=== PATIENT | female | born 1945 | race Caucasian/White ===

== ENCOUNTER → 2016-02-17 | Outpatient (CLI) | payer MEDICARE, OTHER ==
[~2016-02-17] MED LIST: /CELE20CA PO; /ESOM40CA PO; /WARF25TA; ACET65TA PO; BABY81CH PO; CENTRUM SILVER PO; CEPH500C OR; COLA100C2; COLA100C2 PO; CYCL5TA PO; FERR325T; FISHCAP PO; GABA300T PO; GARLPOW PO; LISI20TA5; LISI20TA5 PO; MAGN250T PO; MORP15TA4 PO; MS C15TA5; OSTEO BIFLEX PO; PERC5TAB8; SIMV20TA2; VICO5TAB PO; VITAMIN D PO; [UNRECOGNIZED DRUG - CODE] PO; [UNRECOGNIZED DRUG - OTHER]; [UNRECOGNIZED DRUG - OTHER] PO; cinnamon PO; tps cream TOP; tumeric PO
--- NOTE | 2016-02-29 01:48 | ECWPNPC ---
PATIENT NAME: RICKI MUNGUIA : 1945 GENDER: FEMALE VISIT DATE: 02/17/2016 DISCHARGE DATE: 02/17/16 1509 VISIT LOCKED DATE TIME: PHYSICIAN: SHIMON RICHMODN RESOURCE: SHIMON RICHMOND REASON FOR APPOINTMENT 1. BACK HISTORY OF PRESENT ILLNESS HISTORY OF PRESENT ILLNESS: PAIN THE PATIENT DESCRIBES THE PAIN... THE PATIENT DESCRIBES THE PAIN... THE PATIENT DESCRIBES THE PAIN... HERE FOR F/U AND MEDICINE MANAGEMENT OF CHRONIC LBP AND BILAT. KNEE PAIN. RATING PAIN VAS 5/10. USING MS CONTIN 15MG BID AND CELEBREX 100MG BID .FINDS CURRENT MEDICINE EFFECTIVE AT REDUCING PAIN AND KEEPING HER COMFORTABLE.DENIES SIDE EFFECTS WITH MEDICATION.REPORTING 6MOS HX OF LEFT LBP THAT SEEMS TO BE MORE PERSISTENT PAST TWO MOS.REVIEWED MRI [id number] WHICH SHOWS SEVERE CENTRAL CANAL STENOSIS AT L3/4 AND L4/5.DISCUSSED TREATMENT OPTIONS. FALL RISK SCREENING: SCREENING :NO FALLS IN THE PAST YEAR CURRENT MEDICATIONS TAKING ASPIRIN 81 MG TABLET CHEWABLE 1 TABLET ORALLY ONCE A DAY TAKING CENTRUM SILVER TABLET ORALLY DAILY TAKING CEPHALEXIN 500 MG CAPSULE 1 CAPSULE ORALLY PRE DENTAL WORK; 4 CAPS TAKING COLACE 100 MG CAPSULE 1 CAP ORALLY BID TAKING NEXIUM 40 MG CAPSULE DELAYED RELEASE 1 CAPSULE ORALLY ONCE A DAY TAKING FISH OIL 1200 MG CAPSULE 2 CAPSULE ORALLY TWICE A DAY TAKING LISINOPRIL 20 MG TABLET 1 TABLET ORALLY ONCE A DAY TAKING MAGNESIUM 300 MG CAPSULE 1 CAPSULE WITH A MEAL ORALLY ONCE A DAY TAKING OSTEO BI-FLEX ADV JOINT SHIELD TABLET ORALLY BID TAKING GARLIC 300 MG TABLET ORALLY BID TAKING CINNAMON 1000 MG CAPSULE ORALLY DAILY TAKING TURMERIC 1 CAP(S) P.O. DAILY TAKING CYCLOBENZAPRINE HCL 5 MG TABLET 1 TABLET ORALLY AT BEDTIME NEEDED TAKING MORPHINE SULFATE 15 MG TABLET 1 ORALLY TWICE A DAYMDD2 3MOS CAT D CHRONIC PAIN TAKING CELEBREX 100 MG CAPSULE 1 CAPSULE ORALLY TWICE A DAY TAKING METFORMIN HCL 500 MG TABLET 1 TABLET WITH MEALS ORALLY DAILY DISCONTINUED NIACIN CR 500 MG 1 TAB(S) ORALLY AT BEDTIME DISCONTINUED METFORMIN 1 TAB ORAL MEDICATION LIST REVIEWED AND RECONCILED WITH THE PATIENT PAST MEDICAL HISTORY HTN DIABETES ALLERGIES CODEINE SULFATE: SENSITIVITY REPORTED BY PT: SIDE EFFECTS DARIFENACIN HYDROBROMIDE: LEG CRAMPS: SIDE EFFECTS SOCIAL HISTORY TOBACCO USE ARE YOU A:NONSMOKER LEARNING BARRIERS / SPECIAL NEEDS ORIENTED TO PLAN OF CARE: PATIENT, PAIN MANAGEMENT PATIENT, ORIENTED TO PLAN OF CARE: PATIENT, PAIN MANAGEMENT PATIENT. NEW PATIENT PAIN DIARY TODAY'S VISITNOTES FROM 0-10, WHAT LEVEL IS YOUR PAIN TODAY?0 PAIN CLINIC PFS, CLERGY, PUBLIC HEALTH REFERRALS PFS REFERRAL NEEDED?NO CLERGY REFERRAL NEEDED?NO PUBLIC HEALTH REFERRAL NEEDED?NO WAS THE PROVIDER NOTIFIED OF ANY PERTINENT INFO?NO PFS REFERRAL NEEDED?NO CLERGY REFERRAL NEEDED?NO PUBLIC HEALTH REFERRAL NEEDED?NO WAS THE PROVIDER NOTIFIED OF ANY PERTINENT INFO?NO REVIEW OF SYSTEMS CONSTITUTIONAL: ANY CHANGE IN YOUR MEDICAL CONDITION? NO . CHILLS NO . FEVER NO . INFECTION: DO YOU HAVE NEW INFECTIONS? NO . DO YOU HAVE HISTORY OF MRSA? NO . MUSCULOSKELETAL: ANY NEW PATTERNS OF PAIN OR NUMBNESS? NO . GASTROENTEROLOGY: ANY NEW CHANGE IN BOWEL CONTROL? NO . GENITOURINARY: ANY NEW CHANGE IN BLADDER CONTROL? NO . IS THERE A CHANCE YOU COULD BE ? NO . HEMATOLOGY/LYMPH: DO YOU TAKE ANY BLOOD THINNERS? (FOR EXAMPLE- COUMADIN, PLAVIX, AGGRENOX, PLATEL, PRADAXA, OR XARELTO) NO . WHEN WAS YOUR LAST DOSE? DATE: TIME: . NEUROLOGY: HAVE YOU FALLEN IN THE PAST 6 MONTHS? NO . ANY NEW EXTREMITY NUMBNESS OR WEAKNESS? NO . CARDIOLOGY: DO YOU HAVE A PACEMAKER OR DEFIBRILLATOR? NO . RESPIRATORY: HAVE YOU BEEN SICK IN THE PAST WEEK? NO . FEVER NO . FLU LIKE SYMPTOMS? NO . COUGH NO . INTEGUMENTARY: DO YOU HAVE ANY RASHES OR OPEN SORES? YES, CAT SCRATCHES . ALLERGIC/IMMUNO: ARE YOU ALLERGIC TO SHELLFISH OR IV DYE? NO . ANY NEW ALLERGIES? NO . PSYCHIATRIC: DO YOU HAVE THOUGHTS OF HURTING YOURSELF OR SOMEONE ELSE? NO . ARE YOU ABUSED, NEGLECTED, OR IN AN UNSAFE ENVIRONMENT? NO . ENDOCRINOLOGY: ARE YOU DIABETIC? YES . OTHER: DO YOU NEED ANY PRESCRIPTIONS? YES, MS CONTIN, CELEBREX . IF YES, PLEASE LIST: ____ . ANY NEW PROBLEMS WITH YOUR MEDICATIONS? NO . WHEN DID YOU LAST EAT? ____ . WHEN DID YOU LAST DRINK? ____ . WHAT DID YOU LAST DRINK? ____ . NAME OF PERSON DRIVING YOU HOME? ____ . DO YOU HAVE ANY OTHER QUESTIONS OR CONCERNS NO . REVIEWED BY: PROVIDER: SHIMON HUFF . VITAL SIGNS WT 188 LBS, HT 62 IN, BMI 34.38 INDEX, BP 139/75 MM HG, HR 65 /MIN, RR 16 /MIN, TEMP 96.3 F, OXYGEN SAT % 96%, NA INITIALS SC 14:05, REVIEWED BY: MLF. EXAMINATION GENERAL EXAMINATION: LUNGS:LUNG SOUNDS ARE CLEAR. HEART:HEART RATE REGULAR. MUSCULOSKELETAL:*, MUSCLE STRENGTH TESTING 5/5 BILATERAL, PALPATION: POSITIVE FOR PAIN OVER L/S SPINE. POSITIVE FOR PAIN OVER L/S PARASPINALS.LEFT GREATER THAN RIGHT.. DIAGNOSTIC DATA-MRI L/S SPINE REVIEWED. ASSESSMENTS CHRONIC BILATERAL LOW BACK PAIN WITHOUT SCIATICA - M54.5 (PRIMARY) CHRONIC PRESCRIPTION OPIATE USE - Z79.899 LUMBAR SPINAL STENOSIS - M48.06 TREATMENT CHRONIC BILATERAL LOW BACK PAIN WITHOUT SCIATICA LUMBAR FACET THERAPEUTICSHIMON RICHMOND 02/17/2016 2:49:51 PM > LEFT LUMBAR THERAPEUTIC BLOCK L3/4-L4/5 NOTES: ISTOP REGISTRY REVIEWED AND DEMNOSTRATES COMPLLIANCE. BRINGS IN MEDICATIONS WHICH IS APPROPRIATE FOR WHAT WAS DISPENSED. RECENT URINE TOXICOLOGY REVIEWED. NO UNAUTHORIZED MEDICATIONS. NO ILLICIT SUBSTANCES AND PRESCRIBED MEDICATIONS WERE PRESENT. , PATIENT WAS ADVISED TO START A WALKING PROGRAM TO STRENGTHEN LUMBAR PARASPINAL MUSCLES AND IMPROVE MOBILITY. THEY WERE ADVISED THAT THIS WILL IMPROVE WEIGHT LOSS AND ALSO DEPRESSION/FIBROMYALGIA SYMPTOMS. ADVISED TO WALK 10 MINUTES EVERY OTHER DAY ON A FLAT SURFACE. EMPHASIZED THE IMPORTANCE OF DOING THIS CONSISTANTLY AND NOT SPORATICALLY TO AVOID INJURY. STRONG ADVISED NOT TO DO MORE THAN 10 MINUTES EVERY OTHER DSY FOR THE FIRST 4 WEEKS., RISKS AND BENEFITS OF NARCOTIC/OPIOD MEDICATIONS WERE REVIEWED WITH PATIENT - THIS INCLUDES BUT IS NOT LIMITED TO RISK OF DEPENDANCE/DEVELOPMENT OF ADDICTION, MOOD DISTURBANCE AND DEPRESSION, OSTEOPOROSIS, HORMONAL AND LABIDAL CHANGES, RESPIRATORY DEPRESSION AND . PATIENT IS ADVISED NOT TO DRIVE WHILE ON THESE MEDICATIONS,FACET JOINT INJECTION MATERIAL WAS PRINTED,FACET JOINT INJECTION: YOUR EXPERIENCE MATERIAL WAS PRINTED. LUMBAR SPINAL STENOSIS LUMBAR FACET SHIMON CHEUNG 02/17/2016 2:49:51 PM > LEFT LUMBAR THERAPEUTIC BLOCK L3/4-L4/5 PROCEDURE CODES FA211 ESTABILISHED PATIENT [facility] FACILITY CHARGE G8730 PAIN ASSESS POS TOOL F/U PLAN DOC G8427 DOC MEDS VERIFIED W/PT OR RE FOLLOW UP 2WK POST PROC (REASON: LEFT L3/4-L4/5 LUMBAR THERAPEUTIC FACET BLOCK) ELECTRONICALLY SIGNED BY REFUGIO GOMEZ ON 02/26/2016 AT 05:08 PM EST DISCLAIMER : THIS IS A VISIT SUMMARY EXTRACTED FROM THE [employer] CHART. IT IS NOT A COPY OF THE [employer] PROGRESS NOTE. LAURA
== END ==
LOC: M PAIN 14:00
PROVIDERS: ATTEND Nurse Practitioner Family
DX: Z09 Encounter for follow-up examination after completed treatment for conditions other than malignant neoplasm (principal); G89.29 Other chronic pain; M54.5 Low back pain; M48.06 Spinal stenosis, lumbar region; I10 Essential (primary) hypertension; E11.9 Type 2 diabetes mellitus without complications; Z88.8 Allergy status to other drugs, medicaments and biological substances; Z79.82 Long term (current) use of aspirin; Z79.891 Long term (current) use of opiate analgesic; Z79.899 Other long term (current) drug therapy; Z79.84 Long term (current) use of oral hypoglycemic drugs

== ENCOUNTER → 2016-05-17 | Outpatient (CLI) | payer MEDICARE, OTHER ==
--- NOTE | 2016-05-21 01:31 | ECWPNPC ---
PATIENT NAME: RICKI MUNGUIA : 1945 GENDER: FEMALE VISIT DATE: 05/17/2016 DISCHARGE DATE: 05/17/16 1532 VISIT LOCKED DATE TIME: PHYSICIAN: SHIMON RICHMOND RESOURCE: SHIMON RICHMOND REASON FOR APPOINTMENT 1. FOLLOW UP-BACK HISTORY OF PRESENT ILLNESS HISTORY OF PRESENT ILLNESS: PAIN THE PATIENT DESCRIBES THE PAIN... THE PATIENT DESCRIBES THE PAIN... THE PATIENT DESCRIBES THE PAIN... THE PATIENT DESCRIBES THE PAIN... HERE FOR F/U AND MEDICINE MANAGEMENT OF CHRONIC LBP AND BILAT. KNEE PAIN. RATING PAIN VAS 5/10. USING MS CONTIN 15MG BID AND CELEBREX 100MG BID .FINDS CURRENT MEDICINE EFFECTIVE AT REDUCING PAIN AND KEEPING HER COMFORTABLE.DENIES SIDE EFFECTS WITH MEDICATION.REPORTING 6MOS HX OF LEFT LBP THAT SEEMS TO BE MORE PERSISTENT PAST TWO MOS..DISCUSSED TREATMENT OPTIONS.SOME INCREASE IN PAIN AFTER SITTING WITH RECENT LONG CAR RIDE. FALL RISK SCREENING: SCREENING :NO FALLS IN THE PAST YEAR CURRENT MEDICATIONS TAKING ASPIRIN 81 MG TABLET CHEWABLE 1 TABLET ORALLY ONCE A DAY TAKING CENTRUM SILVER TABLET ORALLY DAILY TAKING CEPHALEXIN 500 MG CAPSULE 1 CAPSULE ORALLY PRE DENTAL WORK; 4 CAPS TAKING COLACE 100 MG CAPSULE 1 CAP ORALLY BID TAKING NEXIUM 40 MG CAPSULE DELAYED RELEASE 1 CAPSULE ORALLY ONCE A DAY TAKING FISH OIL 1200 MG CAPSULE 2 CAPSULE ORALLY TWICE A DAY TAKING LISINOPRIL 20 MG TABLET 1 TABLET ORALLY ONCE A DAY TAKING MAGNESIUM 300 MG CAPSULE 1 CAPSULE WITH A MEAL ORALLY ONCE A DAY TAKING OSTEO BI-FLEX ADV JOINT SHIELD TABLET ORALLY BID TAKING GARLIC 300 MG TABLET ORALLY BID TAKING CINNAMON 1000 MG CAPSULE ORALLY DAILY TAKING TURMERIC 1 CAP(S) P.O. DAILY TAKING CYCLOBENZAPRINE HCL 5 MG TABLET 1 TABLET ORALLY AT BEDTIME NEEDED TAKING METFORMIN HCL 500 MG TABLET 1 TABLET WITH MEALS ORALLY DAILY TAKING CELEBREX 100 MG CAPSULE 1 CAPSULE ORALLY TWICE A DAY TAKING MORPHINE SULFATE 15 MG TABLET 1 ORALLY TWICE A DAYMDD2 3MOS CAT D CHRONIC PAIN TAKING GINKOBA 40 MG TABLET ORALLY BID PAST MEDICAL HISTORY HTN DIABETES ALLERGIES CODEINE SULFATE: SENSITIVITY REPORTED BY PT: SIDE EFFECTS DARIFENACIN HYDROBROMIDE: LEG CRAMPS: SIDE EFFECTS SOCIAL HISTORY GENERAL: PAIN CLINIC PFS, CLERGY, PUBLIC HEALTH REFERRALS CLERGY REFERRAL NEEDED?NO WAS THE PROVIDER NOTIFIED OF ANY PERTINENT INFO?NO PFS REFERRAL NEEDED?NO PUBLIC HEALTH REFERRAL NEEDED?NO PATIENT: ____. REVIEW OF SYSTEMS CONSTITUTIONAL: ANY CHANGE IN YOUR MEDICAL CONDITION? NO . CHILLS NO . FEVER NO . INFECTION: DO YOU HAVE NEW INFECTIONS? NO . DO YOU HAVE HISTORY OF MRSA? NO . MUSCULOSKELETAL: ANY NEW PATTERNS OF PAIN OR NUMBNESS? NO . GASTROENTEROLOGY: ANY NEW CHANGE IN BOWEL CONTROL? NO . GENITOURINARY: ANY NEW CHANGE IN BLADDER CONTROL? NO . IS THERE A CHANCE YOU COULD BE ? NO . HEMATOLOGY/LYMPH: DO YOU TAKE ANY BLOOD THINNERS? (FOR EXAMPLE- COUMADIN, PLAVIX, AGGRENOX, PLATEL, PRADAXA, OR XARELTO) NO . WHEN WAS YOUR LAST DOSE? DATE: TIME: . NEUROLOGY: HAVE YOU FALLEN IN THE PAST 6 MONTHS? NO . ANY NEW EXTREMITY NUMBNESS OR WEAKNESS? NO . CARDIOLOGY: DO YOU HAVE A PACEMAKER OR DEFIBRILLATOR? NO . RESPIRATORY: HAVE YOU BEEN SICK IN THE PAST WEEK? NO . FEVER NO . FLU LIKE SYMPTOMS? NO . COUGH NO . INTEGUMENTARY: DO YOU HAVE ANY RASHES OR OPEN SORES? NO . ALLERGIC/IMMUNO: ARE YOU ALLERGIC TO SHELLFISH OR IV DYE? NO . ANY NEW ALLERGIES? NO . PSYCHIATRIC: DO YOU HAVE THOUGHTS OF HURTING YOURSELF OR SOMEONE ELSE? NO . ARE YOU ABUSED, NEGLECTED, OR IN AN UNSAFE ENVIRONMENT? NO . ENDOCRINOLOGY: ARE YOU DIABETIC? YES . OTHER: DO YOU NEED ANY PRESCRIPTIONS? YES . IF YES, PLEASE LIST: ____MS CONTIN,CELEBREX . ANY NEW PROBLEMS WITH YOUR MEDICATIONS? NO . WHEN DID YOU LAST EAT? ____ . WHEN DID YOU LAST DRINK? ____ . WHAT DID YOU LAST DRINK? ____ . NAME OF PERSON DRIVING YOU HOME? ____ . DO YOU HAVE ANY OTHER QUESTIONS OR CONCERNS NO . REVIEWED BY: PROVIDER: SHIMON HUFF . VITAL SIGNS WT 188.6 LBS, HT 62 IN, BMI 34.49 INDEX, BP 126/67 MM HG, HR 73 /MIN, RR 16 /MIN, TEMP 98.7 F, OXYGEN SAT % 92%, NA INITIALS TL 1434. EXAMINATION GENERAL EXAMINATION: LUNGS:LUNG SOUNDS ARE CLEAR. HEART:HEART RATE REGULAR. MUSCULOSKELETAL:*, MUSCLE STRENGTH TESTING 5/5 BILATERAL, PALPATION: POSITIVE FOR PAIN OVER L/S SPINE. POSITIVE FOR PAIN OVER L/S PARASPINALS.LEFT GREATER THAN RIGHT.. DIAGNOSTIC DATA-MRI L/S SPINE REVIEWED. ASSESSMENTS CHRONIC BILATERAL LOW BACK PAIN WITHOUT SCIATICA - M54.5 (PRIMARY) CHRONIC PRESCRIPTION OPIATE USE - Z79.899 LUMBAR SPINAL STENOSIS - M48.06 TREATMENT CHRONIC BILATERAL LOW BACK PAIN WITHOUT SCIATICA REFILL CELEBREX CAPSULE, 100 MG, 1 CAPSULE, ORALLY, TWICE A DAY, 90 DAY(S), 180 CAPSULE, REFILLS 0 REFILL MORPHINE SULFATE TABLET, 15 MG, 1, ORALLY, TWICE A DAYMDD2 3MOS CAT D CHRONIC PAIN, 90 DAY(S), 180, REFILLS 0 LUMBAR FACET SHIMON CHEUNG 05/17/2016 3:09:03 PM > BILAT. L4/5-L5/S1 THERAPEUTIC FACET BLOCK NOTES: ISTOP REGISTRY REVIEWED AND DEMNOSTRATES COMPLLIANCE. BRINGS IN MEDICATIONS WHICH IS APPROPRIATE FOR WHAT WAS DISPENSED. RECENT URINE TOXICOLOGY REVIEWED. NO UNAUTHORIZED MEDICATIONS. NO ILLICIT SUBSTANCES AND PRESCRIBED MEDICATIONS WERE PRESENT. , RISKS AND BENEFITS OF NARCOTIC/OPIOD MEDICATIONS WERE REVIEWED WITH PATIENT - THIS INCLUDES BUT IS NOT LIMITED TO RISK OF DEPENDANCE/DEVELOPMENT OF ADDICTION, MOOD DISTURBANCE AND DEPRESSION, OSTEOPOROSIS, HORMONAL AND LABIDAL CHANGES, RESPIRATORY DEPRESSION AND . PATIENT IS ADVISED NOT TO DRIVE WHILE ON THESE MEDICATIONS,FACET JOINT INJECTION: YOUR EXPERIENCE MATERIAL WAS PRINTED. PROCEDURE CODES FA211 ESTABILISHED PATIENT [facility] FACILITY CHARGE G8730 PAIN ASSESS POS TOOL F/U PLAN DOC G8427 DOC MEDS VERIFIED W/PT OR RE DISPOSITION & COMMUNICATION FOLLOW UP 2WK POST PROC. (REASON: BILAT.L4/5-L5/S1 THERAPEUTIC FACET) ELECTRONICALLY SIGNED BY REFUGIO GOMEZ ON 05/18/2016 AT 02:19 PM EDT DISCLAIMER : THIS IS A VISIT SUMMARY EXTRACTED FROM THE [employer] CHART. IT IS NOT A COPY OF THE [employer] PROGRESS NOTE. MTDD
== END ==
LOC: M PAIN 14:00
PROVIDERS: ATTEND Nurse Practitioner Family
DX: Z09 Encounter for follow-up examination after completed treatment for conditions other than malignant neoplasm (principal); G89.29 Other chronic pain; M54.5 Low back pain; M48.06 Spinal stenosis, lumbar region; I10 Essential (primary) hypertension; E11.9 Type 2 diabetes mellitus without complications; Z88.5 Allergy status to narcotic agent; Z88.8 Allergy status to other drugs, medicaments and biological substances; Z79.82 Long term (current) use of aspirin; Z79.84 Long term (current) use of oral hypoglycemic drugs; Z79.891 Long term (current) use of opiate analgesic; Z79.899 Other long term (current) drug therapy

== ENCOUNTER → 2016-06-01 | Outpatient (CLI) | payer MEDICARE, OTHER ==
[~2016-06-01] MED LIST changes: +BUPIVACAINE HCL 0.25% 30 ML VIAL As Ordered ONE; +ISOVUE-M 300 61% 15ML VIAL (Q9967) As Ordered ONE; +LIDOCAINE 1% SDV INJ 30 ML VIAL As Ordered ONE; +TRIAMCINOLONE ACETONIDE SUSP 40 MG/ML VIAL (J3301) As Ordered ONE; +diazePAM 5 MG TAB As Ordered ONE; +oxyCODONE 5MG TAB As Ordered ONE
--- NOTE | 2016-06-01 13:45 | REP ---
Partial lumbar spine series: Two views. History: Injection procedure for pain. 19 seconds of fluoroscopy time is reported. Findings: A sequence of two fluoroscopically obtained intraprocedural spot radiographs of the lumbar spine document needle positions and contrast injections associated with the lumbar facet injection procedure. Signed by Doroteo Mccauley MD 06/01/2016 03:40 P
--- NOTE | 2016-06-06 23:44 | ECWPNPC ---
PATIENT NAME: RICKI MUNGUIA : 1945 GENDER: FEMALE VISIT DATE: 06/01/2016 DISCHARGE DATE: 06/01/16 1355 VISIT LOCKED DATE TIME: PHYSICIAN: IRMA KEVIN RESOURCE: IRMA KEVIN REASON FOR APPOINTMENT 1. THER LUMBAR FACET HISTORY OF PRESENT ILLNESS HISTORY OF PRESENT ILLNESS: PAIN THE PATIENT DESCRIBES THE PAIN... FALL RISK SCREENING: SCREENING :NO FALLS IN THE PAST YEAR CURRENT MEDICATIONS TAKING ASPIRIN 81 MG TABLET CHEWABLE 1 TABLET ORALLY ONCE A DAY, NOTES: [id number] TAKING CENTRUM SILVER TABLET ORALLY DAILY, NOTES: 06-01-16799 TAKING CEPHALEXIN 500 MG CAPSULE 1 CAPSULE ORALLY PRE DENTAL WORK; 4 CAPS, NOTES: NONE TAKING COLACE 100 MG CAPSULE 1 CAP ORALLY BID, NOTES: 06-01-16799 TAKING NEXIUM 40 MG CAPSULE DELAYED RELEASE 1 CAPSULE ORALLY ONCE A DAY, NOTES: [id number] TAKING FISH OIL 1200 MG CAPSULE 2 CAPSULE ORALLY TWICE A DAY, NOTES: [id number] TAKING LISINOPRIL 20 MG TABLET 1 TABLET ORALLY ONCE A DAY, NOTES: [id number] TAKING MAGNESIUM 300 MG CAPSULE 1 CAPSULE WITH A MEAL ORALLY ONCE A DAY, NOTES: [id number] TAKING OSTEO BI-FLEX ADV JOINT SHIELD TABLET ORALLY BID, NOTES: 06-01-16799 TAKING GARLIC 300 MG TABLET ORALLY BID, NOTES: 06-01-16799 TAKING CINNAMON 1000 MG CAPSULE ORALLY DAILY, NOTES: 06-01-16799 TAKING TURMERIC 1 CAP(S) P.O. DAILY, NOTES: [id number] TAKING CYCLOBENZAPRINE HCL 5 MG TABLET 1 TABLET ORALLY AT BEDTIME NEEDED, NOTES: NONE TAKING METFORMIN HCL 500 MG TABLET 1 TABLET WITH MEALS ORALLY DAILY, NOTES: 05-31-16999 TAKING GINKOBA 40 MG TABLET ORALLY BID, NOTES: [id number] TAKING CELEBREX 100 MG CAPSULE 1 CAPSULE ORALLY TWICE A DAY, NOTES: 06-01-16799 TAKING MORPHINE SULFATE 15 MG TABLET 1 ORALLY TWICE A DAYMDD2 3MOS CAT D CHRONIC PAIN, NOTES: 06-01-16799 MEDICATION LIST REVIEWED AND RECONCILED WITH THE PATIENT PAST MEDICAL HISTORY HTN DIABETES ALLERGIES CODEINE SULFATE: SENSITIVITY REPORTED BY PT: SIDE EFFECTS DARIFENACIN HYDROBROMIDE: LEG CRAMPS: SIDE EFFECTS SOCIAL HISTORY GENERAL: PAIN CLINIC PFS, CLERGY, PUBLIC HEALTH REFERRALS CLERGY REFERRAL NEEDED?NO WAS THE PROVIDER NOTIFIED OF ANY PERTINENT INFO?NO PFS REFERRAL NEEDED?NO PUBLIC HEALTH REFERRAL NEEDED?NO PATIENT: ____. REVIEW OF SYSTEMS CONSTITUTIONAL: ANY CHANGE IN YOUR MEDICAL CONDITION? NO . CHILLS NO . FEVER NO . INFECTION: DO YOU HAVE NEW INFECTIONS? NO . DO YOU HAVE HISTORY OF MRSA? NO . MUSCULOSKELETAL: ANY NEW PATTERNS OF PAIN OR NUMBNESS? NO . GASTROENTEROLOGY: ANY NEW CHANGE IN BOWEL CONTROL? NO . GENITOURINARY: ANY NEW CHANGE IN BLADDER CONTROL? NO . IS THERE A CHANCE YOU COULD BE ? NO . HEMATOLOGY/LYMPH: DO YOU TAKE ANY BLOOD THINNERS? (FOR EXAMPLE- COUMADIN, PLAVIX, AGGRENOX, PLATEL, PRADAXA, OR XARELTO) NO . WHEN WAS YOUR LAST DOSE? DATE: TIME: . NEUROLOGY: HAVE YOU FALLEN IN THE PAST 6 MONTHS? NO . ANY NEW EXTREMITY NUMBNESS OR WEAKNESS? NO . CARDIOLOGY: DO YOU HAVE A PACEMAKER OR DEFIBRILLATOR? NO . RESPIRATORY: HAVE YOU BEEN SICK IN THE PAST WEEK? NO . FEVER NO . FLU LIKE SYMPTOMS? NO . COUGH NO . INTEGUMENTARY: DO YOU HAVE ANY RASHES OR OPEN SORES? NO . ALLERGIC/IMMUNO: ARE YOU ALLERGIC TO SHELLFISH OR IV DYE? NO . ANY NEW ALLERGIES? NO . PSYCHIATRIC: DO YOU HAVE THOUGHTS OF HURTING YOURSELF OR SOMEONE ELSE? NO . ARE YOU ABUSED, NEGLECTED, OR IN AN UNSAFE ENVIRONMENT? NO . ENDOCRINOLOGY: ARE YOU DIABETIC? YES . OTHER: DO YOU NEED ANY PRESCRIPTIONS? NO . IF YES, PLEASE LIST: ____ . ANY NEW PROBLEMS WITH YOUR MEDICATIONS? NO . WHEN DID YOU LAST EAT? [id number] . WHEN DID YOU LAST DRINK? 06-01-16 0800 . WHAT DID YOU LAST DRINK? WATER . NAME OF PERSON DRIVING YOU HOME? TERESITA RIDLING . DO YOU HAVE ANY OTHER QUESTIONS OR CONCERNS NO . REVIEWED BY: PROVIDER: . VITAL SIGNS WT 187.6 LBS, HT 62 IN, BMI 34.31 INDEX, BP 154/75 MM HG, HR 72 /MIN, RR 16 /MIN, TEMP 98.3 F, OXYGEN SAT % 95%, NA INITIALS SC 11:15, REVIEWED BY: CM. ASSESSMENTS SPONDYLOSIS WITHOUT MYELOPATHY OR RADICULOPATHY, LUMBAR REGION - M47.816 (PRIMARY) SPONDYLOSIS WITHOUT MYELOPATHY OR RADICULOPATHY, LUMBOSACRAL REGION - M47.817 PROCEDURES PN LUMBAR FACET BLOCK THERAPEUTIC PRE PROCEDURE DIAGNOSIS LUMBAR SPONDYLOSIS, LUMBOSACRAL SPONDYLOSIS POST PROCEDURE DIAGNOSIS LUMBAR SPONDYLOSIS, LUMBOSACRAL SPONDYLOSIS PROCEDURE BILATERAL L4-L5 AND BILATERAL L5-S1 LUMBAR FACET THERAPEUTIC BLOCK SURGEON DR. IRMA KEVIN HOSPICE EXECUTIVE DIRECTOR NONE ANESTHESIA LOCAL PRE PROCEDURE NOTE THE PATIENT HAS A HISTORY OF CHRONIC LOW BACK PAIN. I EVALUATE THE PATIENT AND REVIEWED THE CHART. I WENT OVER THE RISKS, ALTERNATIVES, AND BENEFITS ASSOCIATED WITH THIS PROCEDURE. THE PATIENT WOULD LIKE TO PROCEED AND GIVE CONSENT TO PERFORMED THE PROCEDURE. THE PATIENT DENIES UNEXPLAINABLE WEIGHT LOSS, FEVER, CHILLS, OR NEW CHANGES IN URINARY OR BOWEL CONTROL DESCRIPTION OF PROCEDURE THE PATIENT WAS BROUGHT TO THE PROCEDURE ROOM AND PLACED IN THE PRONE POSITION. THE LUMBOSACRAL AREA WAS CLEANED WITH CHLORAPREP SOLUTION AND DRAPED ASEPTICALLY. THE PROCEDURE WAS DONE UNDER STERILE CONDITIONS. I CHECKED LATERALITY AND THE LEVEL WHERE THE PROCEDURE WAS GOING TO BE PERFORMED WITH THE PATIENT AND THE SUPPORTING STAFF AT THE MOMENT OF THE TIME OUT IN THE PROCEDURE ROOM. UNDER FLUOROSCOPIC GUIDANCE, THE TARGET POINT WAS SELECTED AT THE RIGHT AND LEFT L4-L5 AND RIGHT AND LEFT L5-S1 FACET JOINT. TARGET POINT WAS SELECTED AFTER LATERAL ROTATION AND TILT OF THE MAGNIFIER OF THE C-ARM. LIDOCAINE 0.5% WAS USED TO NUMB THE SKIN AND THE SUBCUTANEOUS TISSUE BELOW IT. SPINAL NEEDLES, 22-GAUGE, WERE ADVANCED UNDER FLUOROSCOPIC GUIDANCE AND FOLLOWING PATIENT FEEDBACK UNTIL THE TARGETS WERE TOUCHED. THE POSITION OF THE NEEDLES WAS VERIFIED WITH AP AND LATERAL VIEWS. AFTER PROPER POSITION OF THE NEEDLES WAS ACHIEVED, ISOVUE-M DYE 30% 0.1 ML WAS INJECTED SHOWING ADEQUATE SPREAD OF THE DYE. THEN A SOLUTION OF 1.9 ML OF BUPIVACAINE 0.125% OF KENALOG 10 MG WAS INJECTED AT EACH SITE. THERE WAS NO EVIDENCE OF BLOOD, PARESTHESIA OR CEREBROSPINAL FLUID DURING THE PROCEDURE. THE PATIENT WAS SENT TO THE RECOVERY ROOM. THE PATIENT WAS MOVING THE EXTREMITIES AND DOING WELL. THERE WAS NO COMPLICATION DURING THE PROCEDURE. FLUOROSCOPY TIME WAS 19 SECONDS POST PROCEDURE NOTE THE PATIENT WILL BE SEEN IN A FOLLOW UP IN THE NEXT FEW WEEKS. INSTRUCTIONS WERE GIVEN, QUESTIONS WERE ANSWERED, AND THE PATIENT EXPRESSED UNDERSTANDING AND AGREES WITH THE PLAN. I, VALERIA POST, DOCUMENTED THE ABOVE INFORMATION ACTING A SCRIBE FOR DR. KEVIN. I, DR. KEVIN, HAVE REVIEWED THE ABOVE DOCUMENT, SCRIBED BY VALERIA POST, AND I VERIFY THAT IT IS ACCURATE DIAGNOSTIC IMAGING [facility] FACET BLOCK (PAIN)[id number] PROCEDURE CODES 56072 INJ PARAVERT F JNT L/S 1 LEV 12203 INJ PARAVERT F JNT L/S 2 LEV 6045F RADXPS IN END [id number] PXD DISPOSITION & COMMUNICATION FOLLOW UP 3 WEEKS ELECTRONICALLY SIGNED BY IRMA KEVIN MD ON 06/06/2016 AT 04:54 PM EDT DISCLAIMER : THIS IS A VISIT SUMMARY EXTRACTED FROM THE [employer] CHART. IT IS NOT A COPY OF THE [employer] PROGRESS NOTE. MTDD
== END ==
LOC: M PAIN 11:00
PROVIDERS: ATTEND Anesthesiology
DX: G89.29 Other chronic pain (principal); M47.816 Spondylosis without myelopathy or radiculopathy, lumbar region; M47.817 Spondylosis without myelopathy or radiculopathy, lumbosacral region; I10 Essential (primary) hypertension; E11.9 Type 2 diabetes mellitus without complications; Z88.5 Allergy status to narcotic agent; Z88.8 Allergy status to other drugs, medicaments and biological substances; Z79.82 Long term (current) use of aspirin; Z79.84 Long term (current) use of oral hypoglycemic drugs; Z79.891 Long term (current) use of opiate analgesic; Z79.899 Other long term (current) drug therapy
CPT/HCPCS: 64493; 64494; J3301; Q9967

== ENCOUNTER → 2016-06-15 | Outpatient (CLI) | payer MEDICARE, OTHER ==
[~2016-06-15] MED LIST changes: -BUPIVACAINE HCL 0.25% 30 ML VIAL As Ordered ONE; -ISOVUE-M 300 61% 15ML VIAL (Q9967) As Ordered ONE; -LIDOCAINE 1% SDV INJ 30 ML VIAL As Ordered ONE; -TRIAMCINOLONE ACETONIDE SUSP 40 MG/ML VIAL (J3301) As Ordered ONE; -diazePAM 5 MG TAB As Ordered ONE; -oxyCODONE 5MG TAB As Ordered ONE
--- NOTE | 2016-06-26 00:12 | ECWPNPC ---
PATIENT NAME: RICKI MUNGUIA : 1945 GENDER: FEMALE VISIT DATE: 06/15/2016 DISCHARGE DATE: 06/15/16 1504 VISIT LOCKED DATE TIME: PHYSICIAN: SHIMON RICHMOND RESOURCE: SHIMON RICHMOND REASON FOR APPOINTMENT 1. POST PROCEDURE HISTORY OF PRESENT ILLNESS HISTORY OF PRESENT ILLNESS: HERE FOR POST PROCEDURE F/U.HAD BILAT. L4/5-L5/S1 LUMBAR THERAPEUTIC FACET BLOCK ON 06-01-16.REPORTS 100 % IMPROVEMENT IN PAIN SINCE PROCEDURE THAT CONTINUES TODAY.RATING PAIN VAS 0/10.DISCUSSED MEDICATION.WE TALKED SLOWLY REDUCING AND DISCONTINUING MORPHINE ER 15MG BID. PAIN THE PATIENT DESCRIBES THE PAIN... FALL RISK SCREENING: SCREENING :NO FALLS IN THE PAST YEAR CURRENT MEDICATIONS TAKING ASPIRIN 81 MG TABLET CHEWABLE 1 TABLET ORALLY ONCE A DAY TAKING CENTRUM SILVER TABLET ORALLY DAILY TAKING CEPHALEXIN 500 MG CAPSULE 1 CAPSULE ORALLY PRE DENTAL WORK; 4 CAPS, NOTES: NONE TAKING COLACE 100 MG CAPSULE 1 CAP ORALLY BID TAKING NEXIUM 40 MG CAPSULE DELAYED RELEASE 1 CAPSULE ORALLY ONCE A DAY TAKING FISH OIL 1200 MG CAPSULE 2 CAPSULE ORALLY TWICE A DAY TAKING LISINOPRIL 20 MG TABLET 1 TABLET ORALLY ONCE A DAY TAKING MAGNESIUM 300 MG CAPSULE 1 CAPSULE WITH A MEAL ORALLY ONCE A DAY TAKING OSTEO BI-FLEX ADV JOINT SHIELD TABLET ORALLY BID TAKING GARLIC 300 MG TABLET ORALLY BID TAKING CINNAMON 1000 MG CAPSULE ORALLY DAILY TAKING TURMERIC 1 CAP(S) P.O. DAILY TAKING CYCLOBENZAPRINE HCL 5 MG TABLET 1 TABLET ORALLY AT BEDTIME NEEDED TAKING METFORMIN HCL 500 MG TABLET 1 TABLET WITH MEALS ORALLY DAILY TAKING GINKOBA 40 MG TABLET ORALLY BID TAKING CELEBREX 100 MG CAPSULE 1 CAPSULE ORALLY TWICE A DAY TAKING MORPHINE SULFATE 15 MG TABLET 1 ORALLY TWICE A DAYMDD2 3MOS CAT D CHRONIC PAIN MEDICATION LIST REVIEWED AND RECONCILED WITH THE PATIENT PAST MEDICAL HISTORY HTN DIABETES ALLERGIES CODEINE SULFATE: SENSITIVITY REPORTED BY PT: SIDE EFFECTS DARIFENACIN HYDROBROMIDE: LEG CRAMPS: SIDE EFFECTS REVIEW OF SYSTEMS CONSTITUTIONAL: ANY CHANGE IN YOUR MEDICAL CONDITION? NO . CHILLS NO . FEVER NO . INFECTION: DO YOU HAVE NEW INFECTIONS? NO . DO YOU HAVE HISTORY OF MRSA? NO . MUSCULOSKELETAL: ANY NEW PATTERNS OF PAIN OR NUMBNESS? NO . GASTROENTEROLOGY: ANY NEW CHANGE IN BOWEL CONTROL? NO . GENITOURINARY: ANY NEW CHANGE IN BLADDER CONTROL? NO . IS THERE A CHANCE YOU COULD BE ? NO . HEMATOLOGY/LYMPH: DO YOU TAKE ANY BLOOD THINNERS? (FOR EXAMPLE- COUMADIN, PLAVIX, AGGRENOX, PLATEL, PRADAXA, OR XARELTO) NO . WHEN WAS YOUR LAST DOSE? DATE: TIME: . NEUROLOGY: HAVE YOU FALLEN IN THE PAST 6 MONTHS? NO . ANY NEW EXTREMITY NUMBNESS OR WEAKNESS? NO . CARDIOLOGY: DO YOU HAVE A PACEMAKER OR DEFIBRILLATOR? NO . RESPIRATORY: HAVE YOU BEEN SICK IN THE PAST WEEK? NO . FEVER NO . FLU LIKE SYMPTOMS? NO . COUGH NO . INTEGUMENTARY: DO YOU HAVE ANY RASHES OR OPEN SORES? NO . ALLERGIC/IMMUNO: ARE YOU ALLERGIC TO SHELLFISH OR IV DYE? NO . ANY NEW ALLERGIES? NO . PSYCHIATRIC: DO YOU HAVE THOUGHTS OF HURTING YOURSELF OR SOMEONE ELSE? NO . ARE YOU ABUSED, NEGLECTED, OR IN AN UNSAFE ENVIRONMENT? NO . ENDOCRINOLOGY: ARE YOU DIABETIC? YES . OTHER: DO YOU NEED ANY PRESCRIPTIONS? NO . IF YES, PLEASE LIST: ____ . ANY NEW PROBLEMS WITH YOUR MEDICATIONS? NO . WHEN DID YOU LAST EAT? ____ . WHEN DID YOU LAST DRINK? ____ . WHAT DID YOU LAST DRINK? ____ . NAME OF PERSON DRIVING YOU HOME? ____ . DO YOU HAVE ANY OTHER QUESTIONS OR CONCERNS NO . REVIEWED BY: PROVIDER: SHIMON HUFF . VITAL SIGNS WT 186.2 LBS, HT 62 IN, BMI 34.05 INDEX, BP 136/66 MM HG, HR 78 /MIN, RR 18 /MIN, TEMP 98.5 F, OXYGEN SAT % 96%, NA INITIALS TL 1440, REVIEWED BY: MIGUEL A. EXAMINATION GENERAL EXAMINATION: GENERAL APPEARANCE:LOOKS WELL. PSYCHAFFECT NORMAL. LUNGS:LUNG PEREZ ARE CLEAR TO AUSCULTATION BILATERALLY. GOOD MOVEMENT OF AIR. HEART:S1, S2 IN A REGULAR RATE AND RHYTHM. NO SIGNIFICANT MURMURS, RUBS OR GALLOPS NOTED. LUMBAR SPINE/LOWER BACK: PALPATION:NO VERTEBRAL SPINE TENDERNESS, NO PARASPINAL TENDERNESS. MOTOR SYSTEM:5/5 BLE. SENSORY EXAM:NORMAL BILATERAL LE. ASSESSMENTS CHRONIC BILATERAL LOW BACK PAIN WITHOUT SCIATICA - M54.5 (PRIMARY) CHRONIC PRESCRIPTION OPIATE USE - Z79.899 LUMBAR SPINAL STENOSIS - M48.06 TREATMENT CHRONIC BILATERAL LOW BACK PAIN WITHOUT SCIATICA NOTES: SLOWLYREDUCE AND DISCONTINUE MS CONTIN 15MG. PROCEDURE CODES FA211 ESTABILISHED PATIENT [facility] FACILITY CHARGE G8730 PAIN ASSESS POS TOOL F/U PLAN DOC G8427 DOC MEDS VERIFIED W/PT OR RE DISPOSITION & COMMUNICATION FOLLOW UP 2 MONTHS ELECTRONICALLY SIGNED BY REFUGIO GOMEZ ON 06/25/2016 AT 05:38 PM EDT DISCLAIMER : THIS IS A VISIT SUMMARY EXTRACTED FROM THE [employer] CHART. IT IS NOT A COPY OF THE [employer] PROGRESS NOTE. LAURA
== END ==
LOC: M PAIN 14:20
PROVIDERS: ATTEND Nurse Practitioner Family
DX: G89.29 Other chronic pain (principal); M54.5 Low back pain; M48.06 Spinal stenosis, lumbar region; I10 Essential (primary) hypertension; E11.9 Type 2 diabetes mellitus without complications; Z88.5 Allergy status to narcotic agent; Z88.8 Allergy status to other drugs, medicaments and biological substances; Z79.82 Long term (current) use of aspirin; Z79.84 Long term (current) use of oral hypoglycemic drugs; Z79.891 Long term (current) use of opiate analgesic; Z79.899 Other long term (current) drug therapy

== ENCOUNTER → 2016-08-18 | Outpatient (CLI) | payer MEDICARE, OTHER ==
--- NOTE | 2016-08-31 01:44 | ECWPNPC ---
PATIENT NAME: RICKI MUNGUIA : 1945 GENDER: FEMALE VISIT DATE: 08/18/2016 DISCHARGE DATE: 08/18/16 1451 VISIT LOCKED DATE TIME: PHYSICIAN: SHIMON RICHMOND RESOURCE: SHIMON RICHMOND REASON FOR APPOINTMENT 1. MED HISTORY OF PRESENT ILLNESS HISTORY OF PRESENT ILLNESS: HERE FOR ROUTINE F/U AND MANAGEMENT OF CHRONIC LOW BACK AND KNEE PAIN.COMPLAINING OF 2 MONTH HISTORY OF LEFT LOW BACK PAIN.HAS STRONG FAMILY HISTORY OF KIDNEY PROBLEMS AND SHE WILL BE HAVING PRIMARY CARE EVALUATE.RATING PAIN 5/10 VAS.THIS IS CONSTANT AND SORE.IT IS NOT AGGREVATED BY WALKING.CURRENT MEDICATION FOR CHRONIC LBP:MS CONTIN 15MG QD,FLEXERIL 5MG AT HS AND CELEBREX 100MG BID. FALL RISK SCREENING: SCREENING :NO FALLS IN THE PAST YEAR CURRENT MEDICATIONS TAKING ASPIRIN 81 MG TABLET CHEWABLE 1 TABLET ORALLY ONCE A DAY TAKING CENTRUM SILVER TABLET ORALLY DAILY TAKING CEPHALEXIN 500 MG CAPSULE 1 CAPSULE ORALLY PRE DENTAL WORK; 4 CAPS, NOTES: NONE TAKING COLACE 100 MG CAPSULE 1 CAP ORALLY ONCE DAILY TAKING NEXIUM 40 MG CAPSULE DELAYED RELEASE 1 CAPSULE ORALLY ONCE A DAY TAKING FISH OIL 1200 MG CAPSULE 2 CAPSULE ORALLY TWICE A DAY TAKING LISINOPRIL 20 MG TABLET 1 TABLET ORALLY ONCE A DAY TAKING MAGNESIUM 300 MG CAPSULE 1 CAPSULE WITH A MEAL ORALLY ONCE A DAY TAKING OSTEO BI-FLEX ADV JOINT SHIELD TABLET ORALLY BID TAKING GARLIC 300 MG TABLET ORALLY BID TAKING CINNAMON 1000 MG CAPSULE ORALLY DAILY TAKING TURMERIC 1 CAP(S) P.O. DAILY TAKING CYCLOBENZAPRINE HCL 5 MG TABLET 1 TABLET ORALLY AT BEDTIME NEEDED TAKING METFORMIN HCL 500 MG TABLET 1 TABLET WITH MEALS ORALLY DAILY TAKING GINKOBA 40 MG TABLET ORALLY BID TAKING CELEBREX 100 MG CAPSULE 1 CAPSULE ORALLY TWICE A DAY TAKING MORPHINE SULFATE 15 MG TABLET 1 ORALLY BID TAKING PRAVASTATIN SODIUM 10 MG TABLET 1 TABLET ORALLY ONCE A DAY MEDICATION LIST REVIEWED AND RECONCILED WITH THE PATIENT PAST MEDICAL HISTORY HTN DIABETES ALLERGIES CODEINE SULFATE: SENSITIVITY REPORTED BY PT: SIDE EFFECTS DARIFENACIN HYDROBROMIDE: LEG CRAMPS: SIDE EFFECTS REVIEW OF SYSTEMS REVIEWED BY: PROVIDER: SHIMON HUFF . CONSTITUTIONAL: ANY CHANGE IN YOUR MEDICAL CONDITION? YES . CHILLS NO . FEVER NO . INFECTION: DO YOU HAVE NEW INFECTIONS? NO . DO YOU HAVE HISTORY OF MRSA? NO . MUSCULOSKELETAL: ANY NEW PATTERNS OF PAIN OR NUMBNESS? YES PT REPORTS SHE TRIED TO WEAN HER MORPHINE DOWN, WAS PREVIOUSLY ON BID, NOW ON IT ONCE DAILY IN THE AM. THE PAIN (DESCRIBED A SORENESS/TENDERNESS) HER LEFT SIDE OF HER LOW BACK STARTED SOON AFTER COMING OFF EVENING DOSE, ABOUT ONE MONTH. . GASTROENTEROLOGY: ANY NEW CHANGE IN BOWEL CONTROL? NO . GENITOURINARY: ANY NEW CHANGE IN BLADDER CONTROL? NO . IS THERE A CHANCE YOU COULD BE ? NO . HEMATOLOGY/LYMPH: DO YOU TAKE ANY BLOOD THINNERS? (FOR EXAMPLE- COUMADIN, PLAVIX, AGGRENOX, PLATEL, PRADAXA, OR XARELTO) NO . WHEN WAS YOUR LAST DOSE? DATE: TIME: . NEUROLOGY: HAVE YOU FALLEN IN THE PAST 6 MONTHS? NO . ANY NEW EXTREMITY NUMBNESS OR WEAKNESS? NO . CARDIOLOGY: DO YOU HAVE A PACEMAKER OR DEFIBRILLATOR? NO . RESPIRATORY: HAVE YOU BEEN SICK IN THE PAST WEEK? NO . FEVER NO . FLU LIKE SYMPTOMS? NO . COUGH NO . INTEGUMENTARY: DO YOU HAVE ANY RASHES OR OPEN SORES? NO . ALLERGIC/IMMUNO: ARE YOU ALLERGIC TO SHELLFISH OR IV DYE? NO . ANY NEW ALLERGIES? NO . PSYCHIATRIC: DO YOU HAVE THOUGHTS OF HURTING YOURSELF OR SOMEONE ELSE? NO . ARE YOU ABUSED, NEGLECTED, OR IN AN UNSAFE ENVIRONMENT? NO . ENDOCRINOLOGY: ARE YOU DIABETIC? YES . OTHER: DO YOU NEED ANY PRESCRIPTIONS? YES . IF YES, PLEASE LIST: ____MS CONTIN, CELEBREX . ANY NEW PROBLEMS WITH YOUR MEDICATIONS? NO . WHEN DID YOU LAST EAT? ____ . WHEN DID YOU LAST DRINK? ____ . WHAT DID YOU LAST DRINK? ____ . NAME OF PERSON DRIVING YOU HOME? ____ . DO YOU HAVE ANY OTHER QUESTIONS OR CONCERNS NO . VITAL SIGNS WT 190.6 LBS, HT 62 IN, BMI 34.86 INDEX, BP 146/71 MM HG, HR 77 /MIN, RR 18 /MIN, TEMP 98.8 F, OXYGEN SAT % 97%, SAFE IN ENV? (Y/N) YES, NA INITIALS NH 13:56, REVIEWED BY: DEESAN. EXAMINATION GENERAL EXAMINATION: GENERAL APPEARANCE:LOOKS WELL. PSYCHAFFECT NORMAL. LUNGS:LUNG PEREZ ARE CLEAR TO AUSCULTATION BILATERALLY. GOOD MOVEMENT OF AIR. HEART:S1, S2 IN A REGULAR RATE AND RHYTHM. NO SIGNIFICANT MURMURS, RUBS OR GALLOPS NOTED. LUMBAR SPINE/LOWER BACK: PALPATION:NO VERTEBRAL SPINE TENDERNESS, NO PARASPINAL TENDERNESS, MYOFASCIAL TRIGGER POINTS LEFT LOW BACK.POSITIVE FOR LEFT SIJ TENDERNESS.. MOTOR SYSTEM:5/5 BLE. SENSORY EXAM:NORMAL BILATERAL LE. ASSESSMENTS MYOFASCIAL PAIN - M79.1 (PRIMARY) CHRONIC PRESCRIPTION OPIATE USE - Z79.899 LUMBAR SPINAL STENOSIS - M48.06 TREATMENT MYOFASCIAL PAIN CONTINUE CYCLOBENZAPRINE HCL TABLET, 5 MG, 1 TABLET, ORALLY, AT BEDTIME NEEDED REFILL CELEBREX CAPSULE, 100 MG, 1 CAPSULE, ORALLY, TWICE A DAY, 90 DAY(S), 180 CAPSULE, REFILLS 0 REFILL MORPHINE SULFATE TABLET, 15 MG, 1, ORALLY, DAILY, 30 DAY(S), 30, REFILLS 0 NOTES: TPI LEFT LOW BACK. PROCEDURE CODES FA211 ESTABILISHED PATIENT [facility] FACILITY CHARGE G8730 PAIN ASSESS POS TOOL F/U PLAN DOC G8427 DOC MEDS VERIFIED W/PT OR RE DISPOSITION & COMMUNICATION FOLLOW UP 2WK POST (REASON: TPI LEFT LOW BACK) ELECTRONICALLY SIGNED BY REFUGIO GOMEZ ON 08/30/2016 AT 02:14 PM EDT DISCLAIMER : THIS IS A VISIT SUMMARY EXTRACTED FROM THE [employer] CHART. IT IS NOT A COPY OF THE [employer] PROGRESS NOTE. LAURA
== END ==
LOC: M PAIN 14:00
PROVIDERS: ATTEND Nurse Practitioner Family
DX: G89.29 Other chronic pain (principal); M79.1 Myalgia; M48.06 Spinal stenosis, lumbar region; M25.569 Pain in unspecified knee; I10 Essential (primary) hypertension; E11.9 Type 2 diabetes mellitus without complications; Z88.5 Allergy status to narcotic agent; Z88.8 Allergy status to other drugs, medicaments and biological substances; Z79.82 Long term (current) use of aspirin; Z79.84 Long term (current) use of oral hypoglycemic drugs; Z79.891 Long term (current) use of opiate analgesic; Z79.899 Other long term (current) drug therapy

== ENCOUNTER → 2017-12-03 | Outpatient (CLI) | payer MEDICARE, OTHER | LOC: M RAD 12:07 | DX: K80.20 Calculus of gallbladder without cholecystitis without obstruction (principal); K76.89 Other specified diseases of liver; K86.9 Disease of pancreas, unspecified | CPT/HCPCS: 74181 ==

== ENCOUNTER → 2018-10-19 | Outpatient (REF) | payer MEDICARE, OTHER ==
[~2018-10-19] MED LIST changes: -/CELE20CA PO; -/ESOM40CA PO; -/WARF25TA; +CELE1CAP4 PO; +CENTTAB PO; +CINN1CAP6 PO; +COUM1TAB18; -CYCL5TA PO; +CYCL5TAB5 PO; +DITR1TAB PO; +FISH5CAP PO; +GARL1000 PO; +GARL500T PO; +GINK60TA4 PO; +LIDO5TD TD; +METF-699 PO; +NEXI1CAP3 PO; +NIFE30TA50 PO; +OSTETAB PO; +PRAV10TA3 PO; +TURM500C PO
[2018-10-19 16:11] LABS: ALBUMIN 3.3 GM/DL (3.2-5.2); BILIRUBIN,DIRECT 0.1 MG/DL (0.0-0.2); BILIRUBIN,TOTAL 0.3 MG/DL (0.2-1.0); TOTAL PROTEIN 6.3 GM/DL (6.4-8.2)
== END ==
LOC: M LABDRAW1 15:44
PROVIDERS: ATTEND Nurse Practitioner Family
DX: R94.5 Abnormal results of liver function studies (principal)

== ENCOUNTER → 2019-10-25 | Outpatient (REF) | payer MEDICARE, OTHER ==
[~2019-10-25] MED LIST changes: -METF-699 PO; +METF-817 PO
== END ==
LOC: M LAB REF 11:15
PROVIDERS: ATTEND Internal Medicine Endocrinology, Diabetes & Metabolism
DX: E04.2 Nontoxic multinodular goiter (principal)

== ENCOUNTER → 2020-11-04 | Outpatient (REF) | payer MEDICARE, OTHER ==
[2020-11-04 18:36] LABS: MAU/CREAT RATIO 229.5 MCG/MG (0.0-30.0)
== END ==
LOC: M LAB REF 17:08
PROVIDERS: ATTEND Nurse Practitioner Family
DX: E11.65 Type 2 diabetes mellitus with hyperglycemia (principal)